=== PATIENT | female | born 1990 | race African-American/Black ===

== ENCOUNTER 2021-07-30 19:56 | Emergency (ER) | payer OTHER ==
[~2021-07-30] VITALS: Ht 157.5 cm; Wt 63.6 kg
[2021-07-30] MEDS ORDERED: MULT-1203 PO (20:03)
[2021-07-30] MEDS ORDERED: NORE-8 PO (20:03)
[2021-07-30] MEDS ORDERED: DICYCLOMINE HCL 20 MG TABLET PO ONE (21:00)
[2021-07-30] MEDS ORDERED: SODIUM CHLORIDE 0.9% 1,000 ML IV ONE (21:00)
[2021-07-30] MEDS ORDERED: ONDANSETRON HCL 4 MG/2 ML VIAL IVP ONE (21:00)
[2021-07-30 21:20] LABS: BASOPHILS % (AUTO) 0.3 % (0.0-2.0); EOSINOPHILS % (AUTO) 0.4 % (1.0-6.0); HEMATOCRIT 42.7 % (36-46); HEMOGLOBIN 14.1 g/dL (12.0-16.0); LYMPHOCYTES # (AUTO) 1.8 K/uL (1.0-4.8); LYMPHOCYTES % (AUTO) 19.4 % (22.0-44.0); MEAN CORPUSCULAR HEMOGLOBIN 28.4 pg (26.0-34.0); MEAN CORPUSCULAR VOLUME 86 fL (80-100); MONOCYTES # (AUTO) 0.6 K/uL (0.1-1.0); MONOCYTES % (AUTO) 5.9 % (2.0-9.0); PLATELET COUNT (AUTO) 242 K/uL (150-450); RED BLOOD CELL COUNT(AUTO) 4.96 MIL/uL (4.00-5.20); RED CELL DISTRIBUTION WIDTH 12.9 % (11.5-14.5)
[2021-07-30 21:29] LABS: ANION GAP 10 mmol/L (8-16); CALCIUM, TOTAL 8.7 mg/dL (8.8-10.5); CARBON DIOXIDE 25 mmol/L (22-29); CHLORIDE 103 mmol/L (98-107); CREATININE 0.74 mg/dL (0.60-1.30); GLOMERULAR FILTR. RATE CALC > 60 mL/min (>60); GLUCOSE,RANDOM 83 mg/dL (70-110); POTASSIUM 3.5 mmol/L (3.5-5.1); SODIUM SERUM 138 mmol/L (136-145); UREA NITROGEN, BLOOD 14 mg/dL (7-18)
[2021-07-30 21:41] LABS: ALANINE AMINOTRANSFERASE 19 U/L (12-78); ALKALINE PHOSPHATASE 62 U/L (46-116); ASPARTATE AMINOTRANSFERASE 21 U/L (15-37); BILIRUBIN,TOTAL 0.5 mg/dL (0.1-1.0); HCG,QUANTITATIVE < 1 mIU/mL (0-6); LIPASE 88 U/L (73-393)
[2021-07-30 22:40] LABS: APPEARANCE,URINE CLEAR (CLEAR); BILIRUBIN,URINE NEGATIVE (NEGATIVE); GLUCOSE, URINE (UA) NEGATIVE (NEGATIVE); KETONES,URINE >=80 mg/dL (NEGATIVE); LEUKOCYTE ESTERASE ,URINE NEGATIVE (NEGATIVE); NITRATE,URINE NEGATIVE (NEGATIVE); OCCULT BLOOD,URINE MODERATE (NEGATIVE); PROTEIN,URINE NEGATIVE (NEGATIVE); UROBILINOGEN,URINE 0.2 mg/dL (<=1.0)
[2021-07-30 22:41] LABS: BACTERIA,URINE Rare /HPF (None Seen); WBC,URINE 0-2 /HPF (0-5)
[2021-07-30 23:28] VITALS: BP 112/71
== END 2021-07-30 23:56 | disposition home or self-care (01) ==
LOC: EMS 19:59
DX: E86.0 Dehydration (principal); B34.9 Viral infection, unspecified
CPT/HCPCS: 36415; 80053; 81001; 83690; 84702; 85025; 96361; 96374; 99283; J2405; J7030

== ENCOUNTER 2021-08-04 22:38 | Emergency (ER) | payer OTHER ==
[~2021-08-04] VITALS: Ht 157.5 cm; Wt 63.6 kg
[~2021-08-04 22:38] MED LIST: MULT-1203 PO; NORE-8 PO
[2021-08-04 22:44] VITALS: BP 100/61
[2021-08-04 23:11] LABS: APPEARANCE,URINE CLOUDY (CLEAR); BILIRUBIN,URINE NEGATIVE (NEGATIVE); GLUCOSE, URINE (UA) NEGATIVE (NEGATIVE); KETONES,URINE TRACE mg/dL (NEGATIVE); LEUKOCYTE ESTERASE ,URINE NEGATIVE (NEGATIVE); NITRATE,URINE NEGATIVE (NEGATIVE); OCCULT BLOOD,URINE SMALL (NEGATIVE); PROTEIN,URINE NEGATIVE (NEGATIVE)
[2021-08-04 23:15] LABS: BACTERIA,URINE Rare /HPF (None Seen); SQUAMOUS EPITHELIAL CELL,UR Few /LPF (None Seen); WBC,URINE 0-2 /HPF (0-5)
[2021-08-04 23:16] LABS: BASOPHILS % (AUTO) 0.6 % (0.0-2.0); EOSINOPHILS % (AUTO) 0.6 % (1.0-6.0); HEMATOCRIT 38.2 % (36-46); HEMOGLOBIN 12.8 g/dL (12.0-16.0); LYMPHOCYTES # (AUTO) 2.5 K/uL (1.0-4.8); LYMPHOCYTES % (AUTO) 31.9 % (22.0-44.0); MEAN CORPUSCULAR HEMOGLOBIN 28.6 pg (26.0-34.0); MEAN CORPUSCULAR HGB CONC 33.4 G/dL (31.0-37.0); MEAN CORPUSCULAR VOLUME 86 fL (80-100); MONOCYTES # (AUTO) 0.6 K/uL (0.1-1.0); MONOCYTES % (AUTO) 7.9 % (2.0-9.0); NEUTROPHILS # (AUTO) 4.7 K/uL (1.8-7.7); PLATELET COUNT (AUTO) 264 K/uL (150-450); RED BLOOD CELL COUNT(AUTO) 4.45 MIL/uL (4.00-5.20); RED CELL DISTRIBUTION WIDTH 12.7 % (11.5-14.5)
[2021-08-04 23:24] LABS: ANION GAP 9 mmol/L (8-16); CALCIUM, TOTAL 8.1 mg/dL (8.8-10.5); CARBON DIOXIDE 28 mmol/L (22-29); CHLORIDE 104 mmol/L (98-107); CREATININE 0.56 mg/dL (0.60-1.30); GLOMERULAR FILTR. RATE CALC > 60 mL/min (>60); GLUCOSE,RANDOM 90 mg/dL (70-110); SODIUM SERUM 141 mmol/L (136-145); UREA NITROGEN, BLOOD 11 mg/dL (7-18)
[2021-08-04] MEDS ORDERED: ONDANSETRON HCL 4 MG/2 ML VIAL IVP ONE (23:30)
[2021-08-04] MEDS ORDERED: METOCLOPRAMIDE HCL 5 MG/ML 2 ML VIAL IVP ONE (23:30)
[2021-08-04] MEDS ORDERED: FAMOTIDINE 10 MG/ML 2 ML VIAL IVP ONE (23:30)
[2021-08-04] MEDS ORDERED: MAG HYDROX/AL HYDROX/SIMETH 30 ML SUSP UDCUP PO ONE (23:30)
[2021-08-04] MEDS ORDERED: DiphenhydrAMINE HCL 50 MG/ML VIAL IVP ONE (23:30)
[2021-08-04] MEDS ORDERED: KETOROLAC TROMETHAMINE 30 MG/ML VIAL IVP ONE (23:30)
[2021-08-04 23:36] LABS: ALANINE AMINOTRANSFERASE 47 U/L (12-78); ALBUMIN 3.8 g/dL (3.4-5.0); ALKALINE PHOSPHATASE 60 U/L (46-116); ASPARTATE AMINOTRANSFERASE 21 U/L (15-37); BILIRUBIN,TOTAL 0.2 mg/dL (0.1-1.0); HCG,QUANTITATIVE 1 mIU/mL (0-6); LIPASE 121 U/L (73-393); TOTAL PROTEIN, SERUM 7.5 g/dL (6.4-8.2)
[2021-08-04] MEDS ORDERED: POTASSIUM CHLORIDE 20 MEQ ER TABLET PO ONE (23:45)
[2021-08-05] MEDS ORDERED: SODIUM CHLORIDE 0.9% 100 ML ONE (00:09)
[2021-08-05] MEDS ORDERED: IOHEXOL 350 MG/ML 100 ML VIAL ONE (00:10)
== END 2021-08-05 01:17 | disposition home or self-care (01) ==
LOC: EMS 22:42
DX: E87.6 Hypokalemia (principal); F17.210 Nicotine dependence, cigarettes, uncomplicated; Z79.899 Other long term (current) drug therapy
CPT/HCPCS: 36415; 74177; 80053; 81001; 83690; 84702; 85025; 96374; 96375; 99285; J1200; J1885; J2765; J3490; J7050; Q9967